=== PATIENT | male | born 1985 | race African-American/Black ===

== ENCOUNTER 2021-05-09 10:53 | Emergency (ER) | payer MEDICAID, OTHER ==
[~2021-05-09] VITALS: Ht 170.2 cm; Wt 86.2 kg
[2021-05-09 18:40] VITALS: BP 135/88
== END 2021-05-09 12:46 | disposition home or self-care (01) ==
LOC: EDBD 10:53 → ER 10:53
DX: S92.344A Nondisplaced fracture of fourth metatarsal bone, right foot, initial encounter for closed fracture (principal); F17.210 Nicotine dependence, cigarettes, uncomplicated; W01.0XXA Fall on same level from slipping, tripping and stumbling without subsequent striking against object, initial encounter; Y93.89 Activity, other specified; Y92.89 Other specified places as the place of occurrence of the external cause; Y99.8 Other external cause status
CPT/HCPCS: 73630